=== PATIENT | male | born 1940 | race Caucasian/White ===

== ENCOUNTER 2016-10-31 09:29 | Emergency (ER) | payer OTHER ==
--- NOTE | 2016-10-31 09:44 | CPEKG ---
Heart Rate: 58 RR Interval: 1034 P-R Interval: 184 QRSD Interval: 102 QT Interval: 416 QTC Interval: 409 P [place]: 70 QRS [place]: 3 T Wave [place]: 58 EKG Severity - NORMAL ECG - EKG Impression: SINUS RHYTHM Electronically Signed By: Mandie Gates 31-Oct-2016 15:06:37
[2016-10-31 10:06] LABS: % IMMATURE GRANULYOCYTES 0.3 % (0.0-1.1); ABSOLUTE IMMATURE GRANULOCYTES 0.02 10^3/uL (0.00-0.10); ADD DIFF? NO; ADD MORPH? NO; ADD SCAN? NO; ATYPICAL LYMPHOCYTE FLAG 10 (0-99); FRAGMENT RBC FLAG 0 (0-99); HEMATOCRIT 43.3 % (40.0-51.0); HEMOGLOBIN 14.5 g/dL (13.7-17.5); LEFT SHIFT FLG 0 (0-99); LIPEMIA HEMOLYSIS FLAG 80 (0-99); MEAN CELL HEMOGLOBIN 33.6 pg (27.9-34.1); MEAN CELL HEMOGLOBIN CONCENTR. 33.5 g/dL (32.4-36.7); MEAN CELL VOLUME 100.2 fL (81.5-99.8); MEAN PLATELET VOLUME 11.9 fL (8.7-11.7); PLATELET CLUMPS FLAG 10 (0-99); PLATELET COUNT 167 10^3/uL (150-400); RED BLOOD CELL COUNT 4.32 10^6/uL (4.40-6.38); RED CELL DISTRIBUTION WIDTH 12.6 % (11.5-15.2)
--- NOTE | 2016-10-31 10:10 | EDPHY ---
H & P Stated Complaint: hiking /had episode of nausea/sweating and dizzyness/denies cp Time Seen by Provider: 10/31/16 09:55 HPI/ROS: CHIEF COMPLAINT: Dizziness, nausea, sweating HISTORY OF PRESENT ILLNESS: This patient is a 76 year old male with CAD complaining of an episode of dizziness and sweatiness while going on a hike earlier this morning. He was standing still in the shade for about 15 minutes prior to onset of symptoms and then began feeling dizzy, sweaty, anxious, nauseous. He felt he might faint, and sat down. This lasted about 20 minutes. He states this has never happened before. He had not eaten breakfast before his hike. He was able to drive himself here to the emergency department. He is currently fatigued, but otherwise asymptomatic. No chest pain, difficulty breathing, or other associated symptoms. REVIEW OF SYSTEMS: A 10 point review of systems was performed and is negative with the exception of the elements mentioned in the history of present illness. - Personal History Current Tetanus/Diphtheria Vaccine: Yes - Medical/Surgical History PMH: Cardiac triple bypass. Hx Asthma: No Hx Chronic Respiratory Disease: No Hx Diabetes: No Hx Cardiac Disease: Yes Hx Renal Disease: No Hx Cirrhosis: No Hx Alcoholism: No Hx HIV/AIDS: No Hx Splenectomy or Spleen Trauma: No Other PMH: cardiac bypass - Social History Smoking Status: Never smoked Additional Social History: . Lives in [place]. PCP Dr. Ureña. 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 - Physical Exam Exam: General Appearance: Alert, no distress Eyes: Pupils equal and round, no conjunctival pallor or injection ENT, Mouth: Mucous membranes moist Neck: Normal inspection Respiratory: Lungs are clear to auscultation Cardiovascular: Regular rate and rhythm Gastrointestinal: Abdomen is soft and non- tender Neurological: A&O, nonfocal, normal gait Skin: Warm and dry, no rash Extremities: Nontender, no pedal edema Psychiatric: Mood and affect normal Constitutional: Initial Vital Signs Temperature (C) 36.4 C 10/31/16 09:35 Heart Rate 61 10/31/16 09:35 Respiratory Rate 20 10/31/16 09:35 Blood Pressure 117/77 10/31/16 09:35 O2 Sat (%) 97 10/31/16 09:35 O2 Delivery Mode Room Air Allergies/Adverse Reactions: No Known Allergies Allergy (Unverified 10/31/16 09:34) Home Medications: Medication Instructions Recorded Aspirin 325 mg (*) 10/31/16 Atorvastatin Calcium 10/31/16 Ramipril 10/31/16 Tamsulosin HCl 10/31/16 Vitamins A and D 10/31/16 Medical Decision Making - Diagnostics Imaging Results: Chest X-Ray 10/31/16 09:33 Impression: 1. Clear lungs. No acute process. 2. Stigmata of coronary artery disease. ED Course/Re-evaluation: 76 year old male presents following a near-syncopal episode earlier today. Likely vasovagal episode. stat EKG reveals no ischemia or dysrhythmia. Chest x-ray negative for acute processes. The patient was stable throughout his emergency room stay. 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 I do not suspect dysrhythmia or acute coronary syndrome. Plan to discharge home in good condition. Differential Diagnosis: Differential diagnosis includes though is not limited to cardiac dysrhythmia, CVA, TIA, GI bleed, sepsis, hypoglycemia. - Data Points Laboratory Results: Laboratory Results 10/31/16 09:55 10/31/16 09:55 10/31/16 09:44 Free PSA 0.7 ng/mL ng/mL Total PSA 2.6 ng/mL ng/mL (<=6.5) Departure - Departure Disposition: Home, Routine, Self-Care Clinical Impression: Near syncope Condition: Good Instructions: Near Syncope (ED) Additional Instructions: 1. Follow up with Dr. Ureña this week for further evaluation. Call tomorrow for an appointment. 2. Be sure to stay hydrated and eat well. 3. Return to the emergency department for chest pain, shortness of breath, fainting, weakness, or other worsening of condition. Referrals: Alfredo Ureña MD [Primary Care Provider] - As per Instructions Report Scribed for: Mandie Gates Report Scribed by: Shey Rowland Date of Report: 10/31/16 Time of Report: 10:11 Physician Review and Approval Statement: 10/31/16 10:10 Portions of this note were transcribed by a medical secretary receptionist. I personally performed a history, physical exam, medical decision making, and confirmed accuracy of information the transcribed note.
[2016-10-31 10:14] LABS: ANION GAP 13 mEq/L (8-16); CALCIUM 9.9 mg/dL (8.5-10.4); CARBON DIOXIDE 26 mEq/l (22-31); CHLORIDE 103 mEq/L (97-110); CREATININE 0.9 mg/dL (0.7-1.3); GLOMERULAR FILTRATION RATE > 60; GLUCOSE 139 mg/dL (70-100); POTASSIUM 4.2 mEq/L (3.5-5.2); SODIUM 142 mEq/L (134-144)
[2016-10-31 10:26] LABS: TROPONIN I < 0.012 ng/mL (0.000-0.034)
[2016-10-31 11:01] LABS: ALANINE AMINOTRANSFERASE 35 IU/L (21-72); ALBUMIN 4.5 g/dL (3.5-5.0); ALKALINE PHOSPHATASE 63 IU/L (38-126); ASPARTATE AMINOTRANSFERASE 28 IU/L (17-59); BILIRUBIN,TOTAL 1.9 mg/dL (0.1-1.4); BILIRUBIN-CONJUGATED 0.6 mg/dL (0.0-0.5); BILIRUBIN-UNCONJUGATED 1.3 mg/dL (0.0-1.1); CHOLESTEROL 128 mg/dL (140-220); CHOLESTEROL/HDL RATIO 2.61 RATIO (1.00-4.97); HIGH DENSITY LIPOPROTEIN 49 mg/dL (40-65); LDL/HDL RATIO 1.29 RATIO (1.00-3.64); LOW DENSITY LIPOPROTEIN 63 mg/dL (80-100); NON-HIGH DENSITY LIPOPROTEIN 79 mg/dL (90-129); TOTAL PROTEIN 6.8 g/dL (6.3-8.2); TRIGLYCERIDE 83 mg/dL (40-150); VERY LOW DENSITY LIPOPROTEINS 16 mg/dL (8-25)
[2016-10-31 11:31] VITALS: BP 122/78; PULSE 81; RESP 16; TEMP 98.6; O2SAT 98
[2016-11-02 15:01] LABS: FREE PSA 0.7 ng/mL; PSA RATIO F/T See Comments ratio; TOTAL PSA 2.6 ng/mL (<=6.5)
== END 2016-10-31 11:31 | disposition home or self-care (01) ==
DX: R55 Syncope and collapse (principal); Z79.82 Long term (current) use of aspirin
CPT/HCPCS: 84154-90

== ENCOUNTER → 2017-01-03 | Outpatient (CLI) | payer OTHER | LOC: FIMAGING 13:14 | PROVIDERS: ATTEND Physician Assistant | DX: S83.242A Other tear of medial meniscus, current injury, left knee, initial encounter (principal) ==

== ENCOUNTER → 2017-05-27 | Outpatient (CLI) | payer OTHER ==
[~2017-05-27] MED LIST: GADOBUTROL 10 ML VIAL IVP ONE
== END ==
LOC: FIMAGING 10:36
PROVIDERS: ATTEND Urology
DX: N28.9 Disorder of kidney and ureter, unspecified (principal); K76.9 Liver disease, unspecified; K80.20 Calculus of gallbladder without cholecystitis without obstruction
CPT/HCPCS: 74183; A9585